=== PATIENT | male | born 1955 | race Caucasian/White ===

== ENCOUNTER 2018-09-13 07:40 | Outpatient (CLI) | payer BC ==
--- NOTE | 2018-09-13 09:53 | CT ---
CT PULMONARY ANGIO CHEST WITH 3D RENDERING: HISTORY: Shortness of breath, chest pain, elevated D-Dimer. FINDINGS: There is a 2.8 x 4 x 3.5 cm diameter circumscribed lower attenuation mass in the left paravertebral r egion posterior to the aorta which appears to be pleural-based. Attenuation coefficients are higher than expected for typical fluid. There are some erosive changes of the adjacent ribs indicating some mass effect. This mass does not extend into the adjacent foramen. The visualized pulmonary arterie s demonstrate no evidence for intraluminal thrombus. Mild linear parenchymal changes in the lung bas es, evidence for chronic change or subsegmental atelectasis. Multiple low-attenuation circumscribed foci within the visualized kidney, evidence for cysts which have increased in number and size from pr ior CT 01/04/2014. Fatty changes in the liver. No pleural effusion or pericardial effusion. Minima l coronary artery calcification involving the LAD. IMPRESSION: 1. Circumscribed mass in the medial posterior left chest in a paravertebral location posterior to th e aorta with some mass effect on the adjacent ribs, not extending into the foramen. Followup PET sca n is recommended for further assessment in this regard. 2. No convincing CT evidence for acute pulmonary embolism. 3. Bilateral renal cysts, more in number and size than on prior study. 4. Fatty changes in the liver. 5. Mild linear parenchymal changes in the lung bases, nonspecific. CODE T POS: OFF
== END 2018-09-13 07:41 | disposition home or self-care (01) ==
LOC: CT 07:40
PROVIDERS: ATTEND Family Medicine
DX: R07.9 Chest pain, unspecified (principal); R22.2 Localized swelling, mass and lump, trunk; K76.0 Fatty (change of) liver, not elsewhere classified; N28.1 Cyst of kidney, acquired
CPT/HCPCS: 71275

== ENCOUNTER 2018-09-29 07:42 | Outpatient (CLI) | payer BC ==
--- NOTE | 2018-09-29 09:45 | PET ---
PET CT: HISTORY: A 62-year-old male with chest mass seen on CT pulmonary angiogram of 09/13/2018. TECHNIQUE: PET scanning with CT attenuation correction was performed from the base of the brain through the prox imal thighs following the intravenous administration of 12 mCi of [id number] in the right hand. COMPARISON: None. CORRELATION: CT pulmonary angiogram dated 09/13/2018. FINDINGS: There is hypermetabolic activity in the left paraspinal mass in the posteromedial chest with an SUV o f 3.1. No aidan hypermetabolism is seen involving the cervical, mediastinal, hilar, axillary, abdominal, or pelvic lymph nodes. No hypermetabolic pulmonary nodules, liver, adrenal, or skeletal lesions are see n. There is physiologic activity in the GI/ tracts and visualized portions of the brain. The CT scan used for attenuation correction demonstrates no evidence of pleural effusions or ascites. IMPRESSION: Left paraspinal mass is hypermetabolic. The possibility of malignancy/metastatic disease should be c onsidered. MRI of the thoracic spine with and without IV contrast is recommended to evaluate for a n eurogenic tumor. POS: AARON
== END 2018-09-29 07:43 | disposition home or self-care (01) ==
LOC: PET 07:42
PROVIDERS: ATTEND Family Medicine
DX: R22.2 Localized swelling, mass and lump, trunk (principal)
CPT/HCPCS: 78815; A9552

== ENCOUNTER 2018-10-12 13:10 | Outpatient (CLI) | payer BC ==
--- NOTE | 2018-10-12 15:17 | ULT ---
US Renal Bilateral STANDARD: 10/12/2018 12:00 AM CLINICAL HISTORY: Renal cysts. STUDY: Renal ultrasound COMPARISON: None. FINDINGS: Right kidney: Echogenicity: Normal. Masses/cysts: 2 cysts measuring up to 4.1 cm in size. Hydronephrosis: None. Calcifications: None. Length: 15.2 cm Left kidney: Echogenicity: Normal. Masses/cysts: 2 cysts measuring up to 1.6 cm in size. Hydronephrosis: None. Calcifications: None. Length: 14.2 cm Limited visualization of the urinary bladder is unremarkable. IMPRESSION: Bilateral renal cysts
--- NOTE | 2018-10-12 15:38 | MRI ---
MRI THORACIC SPINE WITH AND WITHOUT CONTRAST: 10/12/18 HISTORY: 63-year-old male with left paravertebral mass found on CT pulmonary angiogram, which is mildly FDG av id (SUV 3.1) on PET scan. COMPARISON: No prior MRIs of T-spine. FINDINGS: Abutting the posterior surface of the descending thoracic aorta and between the proximal aspects of t he left fourth and fifth ribs, there is a well circumscribed, approximately 3 x 3.5 x 4 cm mass which is T1 moderately hypointense, has mixed hyperintense and intermediate T2 signal, and has heterogeneo us moderate enhancement. Its medial edge is lateral to the left T5-6 neural foramen. There is no tumo r component within the left neural foramen or spinal canal. There is no intramedullary signal abnorma lity and no abnormal intramedullary enhancement of the spinal cord. There are moderate degenerative d isc changes at T10-11, T11-12. There is minimal chronic anterior wedging of T11, associated with mild focal kyphosis there. Bridging osteophytes protrude into the prevertebral space at T11-12 and T12-L1 . The bone marrow signal is normal at all visualized levels. Vertebral body heights are maintained. N o high grade central spinal canal stenosis or high grade neural foraminal stenosis at any level. IMPRESSION: 1. Enhancing tumor mass at left paravertebral, retroaortic location, centered at T5-6, with no c onnection to the neural foramen or spinal canal. This is consistent with neoplasm. This could be a ne urogenic tumor, including parasympathetic ganglion tumors and sympathetic chain tumors, and periphera l nerve sheath tumor. Metastasis is less likely because no other tumor was found on the PET scan. 2. 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 3. The rest of the thoracic spine is relatively normal. POS: CET
== END 2018-10-12 13:11 | disposition home or self-care (01) ==
LOC: BICMRI 13:10
PROVIDERS: ATTEND Family Medicine
DX: R22.2 Localized swelling, mass and lump, trunk (principal); N28.1 Cyst of kidney, acquired; M51.34 Other intervertebral disc degeneration, thoracic region
CPT/HCPCS: 72157; 76770

== ENCOUNTER 2018-10-31 08:34 | Day surgery (SDC) | payer BC ==
[2018-10-30 16:00] VITALS: BMI 37.5
[2018-10-31 09:05] LABS: INR-International Normal Ratio 1.1; Prothrombin Time 13.7 SEC (12.0-14.7)
[2018-10-31 09:06] LABS: PTT 35.7 SEC (22.9-36.1)
[2018-10-31] MEDS ORDERED: Sodium Bicarbonate 2.5 MEQ/5 ML VIAL ONE (10:17)
[2018-10-31] MEDS ORDERED: Fentanyl 100 MCG/2 ML VIAL ONE (10:17)
[2018-10-31] MEDS ORDERED: Midazolam HCl 2 mg/2 ml Vial ONE (10:18)
--- NOTE | 2018-10-31 13:16 | CT ---
EXAM: CT guided percutaneous biopsy of a left paraspinous mass PROVIDED CLINICAL HISTORY: Patient with prior imaging studies demonstrating a left paraspinal mass at the T5-6 level. Biopsy was requested. COMPARISON: CTA chest on 09/13/2018 and MRI thoracic spine on 10/12/2018 TECHNIQUE: The procedure including the risks and complications were explained to the patient, and informed conse nt was obtained. The patient was placed on the CT scan table in the prone position. Limited noncontrasted CT scan was obtained through the level of the paraspinal mass. An area was marked, and then the area was meticulously prepped and draped in usual sterile fashion. The skin and subcutaneous tissues were infiltrated with buffered 1% lidocaine for local anesthesia. A small skin incision was made. A 17-gauge guide needle was advanced followed by axial noncontrasted CT images. This was repeated until the needle was placed just within the posterior peripheral aspect of the left paraspinal mass. A total of two 18-gauge core needle biopsy specimens were obtained utilizing coaxial technique. Pathologist was available for evaluation of the specimens. The needle was removed, and hemostasis was achieved with direct pressure. Axial noncontrasted imaging performed postbiopsy demonstrates no adjacent hematoma or fluid. The patient tolerated the procedure well and without immediate complication. The patient was monitored in radiology nurses hold [facility] area without further complication, the patient was discharged in stable condition. IMPRESSION: 1. Left paraspinal mass at the T5-6 level. 2. Technically successful CT-guided percutaneous biopsy of the left paraspinal mass. Final pathology report is pending.
== END 2018-10-31 13:00 | disposition home or self-care (01) ==
LOC: RAD 08:34
PROVIDERS: ATTEND Physician Assistant Surgical
PROC: 0JB60ZX Excision of Chest Subcutaneous Tissue and Fascia, Open Approach, Diagnostic (ICD-10-PCS; principal; 2018-10-31)
DX: D36.10 Benign neoplasm of peripheral nerves and autonomic nervous system, unspecified (principal); I10 Essential (primary) hypertension; E11.9 Type 2 diabetes mellitus without complications; E78.5 Hyperlipidemia, unspecified; G47.33 Obstructive sleep apnea (adult) (pediatric); Z88.1 Allergy status to other antibiotic agents; Z88.5 Allergy status to narcotic agent; Z91.013 Allergy to seafood; Z91.041 Radiographic dye allergy status
CPT/HCPCS: 36415; 71250; 72131; 77002; 85610; 85730; 88307; 88333; 88341; 88342; J2250; J3010

== ENCOUNTER 2018-11-13 05:57 | Inpatient (IN) | payer BC ==
[2018-11-10 17:33] VITALS: BMI 37.5
[2018-11-10 17:45] LABS: #Basophils 0.1 thou/uL (0.0-0.2); #Eosinphils 0.2 thou/uL (0.0-0.7); #Lymphocytes 2.8 thou/uL (1.20-3.40); #Monocytes 0.6 thou/uL (0.11-0.59); #Neutrophils 4.5 thou/uL (1.40-6.50); %Basophils 0.8 % (0.0-1.0); %Eosinophils 2.9 % (0.0-10.0); %Lymphocytes 34.1 % (21.0-51.0); %Monocytes 7.3 % (0.0-10.0); %Neutrophils 54.9 % (42.0-75.0); Hemoglobin 13.3 g/dL (14.0-18.0); Mean Corpuscular HGB CONC 35.8 g/dL (32.0-36.0); Mean Corpuscular Hemoglobin 31.2 pg (27.0-31.0); Mean Corpuscular Volume 87.2 fL (78.0-98.0); Platelet Count 230 thou/uL (130-400); RBC Distribution Width 13.2 % (11.5-14.5); Red Blood Cell (RBC) Count 4.25 mill/uL (4.70-6.10); White Blood Cell (WBC) Count 8.2 thou/uL (4.8-10.8)
[2018-11-10 18:17] LABS: Anion Gap 16 mmol/L (10-20); BUN (Urea Nitrogen) 18 mg/dL (8.4-25.7); Calc. Creatinine Clearance 0 mL/min (70-130); Calcium 9.5 mg/dL (7.8-10.44); Carbon Dioxide 21 mmol/L (23-31); Chloride 100 mmol/L (98-107); Estimated GFR-MDRD Greater than 90; Glucose 187 mg/dL (80-115); Sodium 133 mmol/L (136-145)
[2018-11-13] MEDS ORDERED: Bupivacaine HCl 0.5%/Epinephrine 1:200,000/PF 30 ml Vial ONE (06:35)
[2018-11-13] MEDS ORDERED: Midazolam HCl 2 mg/2 ml Vial ONE ×2 (06:58→07:35)
[2018-11-13] MEDS ORDERED: Fentanyl 100 MCG/2 ML VIAL ONE ×3 (06:59→15:48)
[2018-11-13] MEDS ORDERED: Lidocaine 1.5% w/Epi 1:200K 30 ML VIAL (Epid Use) ONE (07:22)
[2018-11-13] MEDS ORDERED: Lidocaine 1% PF 5 ML VIAL ONE (07:22)
[2018-11-13] MEDS ORDERED: Acetaminophen 500 MG TAB PO PRN (07:33)
[2018-11-13] MEDS ORDERED: Fentanyl 250 MCG/5 ML VIAL ONE (07:35)
[2018-11-13] MEDS ORDERED: diphenhydrAMINE 50 MG/ML VIAL IM PRN (07:45)
[2018-11-13] MEDS ORDERED: Bupivacaine 0.25% 10 ML VIAL EPIDURAL PRN (07:45)
[2018-11-13] MEDS ORDERED: diphenhydrAMINE 25 MG CAP PO PRN (07:45)
[2018-11-13] MEDS ORDERED: traMADol HCl 50 MG TAB PO PRN ×2 (07:45→09:43)
[2018-11-13] MEDS ORDERED: Ondansetron PF 4 MG/2 ML Vial IVP PRN ×2 (07:45→09:43)
[2018-11-13] MEDS ORDERED: Promethazine HCl 25 MG/ML VIAL IM PRN ×2 (07:45→09:43)
[2018-11-13] MEDS ORDERED: Hydrocerin (Eucerin) Cream 120 gm Jar TOP PRN (07:45)
[2018-11-13] MEDS ORDERED: Promethazine HCl 25 MG SUPP PR PRN (07:45)
[2018-11-13] MEDS ORDERED: diphenhydrAMINE 50 MG/ML VIAL IVP PRN (07:45)
[2018-11-13] MEDS ORDERED: Fentanyl 5 mcg/Bup 0.075% Cadd 100 ML EPIDURAL SCH (07:45)
[2018-11-13] MEDS ORDERED: Naloxone HCl 0.4 mg/ml Vial IV PRN (07:45)
[2018-11-13] MEDS ORDERED: Naloxone HCl 0.4 mg/ml Vial IVP PRN (07:45)
[2018-11-13] MEDS ORDERED: Zolpidem Tartrate 5 MG TAB PO PRN (07:45)
[2018-11-13] MEDS ORDERED: Bupivacaine/Epinephrine 0.25% 30 ML VIAL ONE (08:49)
[2018-11-13] MEDS ORDERED: Insulin Regular 300 UNITS/3 ML VIAL SC PRN (09:43)
[2018-11-13] MEDS ORDERED: HYDROcodone/Acetaminophen 5/325 mg Tablet PO PRN ×2 (09:43)
--- NOTE | 2018-11-13 10:56 | RAD ---
RADIOGRAPH CHEST 1 VIEW: Date: 11/13/18 Time: 0937 hours HISTORY: 63-year-old male status post thoracotomy. COMPARISON: 09/04/18. FINDINGS: New finding of two left-sided chest tubes, one at left base, and the other with tip near apex. No pne umothorax visualized. Lungs are hypoinflated now. Mild, small patchy densities left mid-lower lung zo ne and right base, new since the prior study. These are nonspecific, but could represent atelectasis. No cardiomegaly or pulmonary edema. Faint patchy ill-defined infiltrate-like density over right mid lung zone. IMPRESSION: 1. Two left-sided chest tubes. 2. No pneumothorax identified. 3. Nonspecific small pulmonary densities bilaterally. JN [] POS: CET
--- NOTE | 2018-11-13 12:18 | OP ---
DATE OF PROCEDURE: 11/13/2018 PREOPERATIVE DIAGNOSIS: Left chest wall schwannoma. POSTOPERATIVE DIAGNOSIS: Left chest wall schwannoma. PROCEDURE PERFORMED: Left thoracotomy for resection of schwannoma. ANESTHESIA: General endotracheal-Dr. Michaela Torres. ESTIMATED BLOOD LOSS: Less than 100. DRAINS: A 24-Anguillan Jonah drains x2. DESCRIPTION OF PROCEDURE: After consent was obtained, the patient was brought to the operating room, placed in supine position on the operating table. Appropriate central line and monitors were placed and general endotracheal anesthesia was induced. The patient was placed in the right lateral decubitus position. Joints were appropriately padded and SCDs were used. Left chest was prepped and draped in usual sterile fashion. A posterolateral thoracotomy incision was made. Dissection down through the latissimus was done with electrocautery. The patient had a thick chest wall including musculature. Serratus was fair. Fifth interspace was entered. The lung was deflated. Mass was easily visualized. The pleura was incised over the mass, and finger dissection used to carefully dissect the mass free from the chest wall. Feeding vessels were clipped, and the mass was then sharply removed. Hemostasis was ensured in the bed. Two 24-Anguillan Jonah drains were placed. The lung was re-expanded under direct vision and filled the chest cavity nicely. Ribs reapproximated with #1 Vicryl. Wounds were irrigated and closed in multiple layers, and Dermabond applied to skin. The patient was awakened, extubated, transferred to the recovery room in stable condition. Job ID: [id number]
[2018-11-13] MEDS ORDERED: Rocuronium Bromide 10 MG/ML (10ML VIAL) ONE (14:12)
[2018-11-13] MEDS ORDERED: Ondansetron PF 4 MG/2 ML Vial ONE (14:12)
[2018-11-13] MEDS ORDERED: PROPOFOL 200 MG/20 ML VIAL ONE (14:12)
[2018-11-13] MEDS ORDERED: Dexamethasone 20 MG/5 ML VIAL ONE (14:12)
[2018-11-13] MEDS ORDERED: Ketorolac Tromethamine 30 MG/ML VIAL ONE (14:12)
[2018-11-13] MEDS ORDERED: Glycopyrrolate 0.2 MG/ML 5 ML SYRINGE ONE (14:12)
[2018-11-13] MEDS ORDERED: Promethazine HCl 25 MG/ML VIAL IM/IV PRN (15:56)
[2018-11-13] MEDS ORDERED: Ondansetron HCl/PF 4 MG/2 ML Vial IVP PRN (15:56)
[2018-11-13] MEDS ORDERED: Non-Formulary Medication 1 EACH PO PRN (15:56)
[2018-11-13] MEDS: metFORMIN 500 MG TAB PO SCH (16:23)
[2018-11-13] MEDS: Sodium Chloride 0.9% 1,000 ML IV SCH ×2 (16:30→20:39)
[2018-11-13] MEDS: CEFAZOLIN 2 GM in Premix Bag 1 BAG IVPB SCH ×2 (16:31→21:52)
[2018-11-13] MEDS: Ketorolac Tromethamine 30 MG/ML VIAL IVP SCH ×3 (16:31→23:47)
[2018-11-13] MEDS: Rosuvastatin 20 MG TAB PO SCH (20:48)
[2018-11-13] MEDS: glipiZIDE 10 MG TAB PO SCH (20:48)
[2018-11-13] MEDS: fentaNYL Citrate/PF 500 MCG, Bupivacaine 10 ML in Sodium Chloride 0.9% 80 ML EPIDURAL SCH (21:41)
[2018-11-13] MEDS: traMADol HCl 50 MG TAB PO PRN (22:13)
[2018-11-14] MEDS: traMADol HCl 50 MG TAB PO PRN ×2 (03:26→09:28)
[2018-11-14 04:21] LABS: #Lymphocytes 1.2 thou/uL (1.20-3.40); #Monocytes 1.1 thou/uL (0.11-0.59); %Basophils 0.3 % (0.0-1.0); %Eosinophils 0.3 % (0.0-10.0); %Lymphocytes 10.8 % (21.0-51.0); %Monocytes 9.5 % (0.0-10.0); %Neutrophils 79.2 % (42.0-75.0); Hemoglobin 12.8 g/dL (14.0-18.0); Mean Corpuscular HGB CONC 35.4 g/dL (32.0-36.0); Mean Corpuscular Hemoglobin 31.4 pg (27.0-31.0); Mean Corpuscular Volume 88.6 fL (78.0-98.0); Platelet Count 253 thou/uL (130-400); RBC Distribution Width 13.2 % (11.5-14.5); Red Blood Cell (RBC) Count 4.07 mill/uL (4.70-6.10); White Blood Cell (WBC) Count 11.4 thou/uL (4.8-10.8)
[2018-11-14 04:45] LABS: Anion Gap 12 mmol/L (10-20); BUN (Urea Nitrogen) 20 mg/dL (8.4-25.7); Calc. Creatinine Clearance 176 mL/min (70-130); Calcium 8.7 mg/dL (7.8-10.44); Carbon Dioxide 25 mmol/L (23-31); Chloride 100 mmol/L (98-107); Estimated GFR-MDRD Greater than 90; Glucose 158 mg/dL (80-115); Sodium 133 mmol/L (136-145)
[2018-11-14] MEDS: Sodium Chloride 0.9% 1,000 ML IV SCH ×2 (05:01→16:22)
[2018-11-14] MEDS: CEFAZOLIN 2 GM in Premix Bag 1 BAG IVPB SCH (05:09)
[2018-11-14] MEDS: Ketorolac Tromethamine 30 MG/ML VIAL IVP SCH ×3 (05:09→17:31)
--- NOTE | 2018-11-14 07:44 | RAD ---
Exam: Chest one view: HISTORY: Status post thoracotomy COMPARISON: 11/13/2018 FINDINGS: Left chest tube is in place. Minimal supraclavicular subcutaneous emphysema. Possible tiny apical pne umothorax. Poor inspiratory effort with mostly linear horizontal parenchymal changes bilaterally evidence for subsegmental atelectasis. Stable appearance from prior study. IMPRESSION: Stable appearance of the chest.
[2018-11-14] MEDS ORDERED: METHYLPHENIDATE HCL PO SCH (09:00)
[2018-11-14] MEDS ORDERED: Non-Formulary Item 1 EACH (Empagliflozin [Jardiance] 1 TAB) PO SCH (09:00)
[2018-11-14] MEDS ORDERED: Fenofibrate Nanocrystallized 145 MG TAB PO SCH (09:00)
[2018-11-14] MEDS: metFORMIN 500 MG TAB PO SCH ×2 (09:28→17:32)
[2018-11-14] MEDS: Cholestyramine/Aspartame 4 gm Packet PO SCH (09:29)
[2018-11-14] MEDS: Lisinopril 20 MG TAB PO SCH (09:29)
[2018-11-14] MEDS: Tamsulosin HCl 0.4 MG CAP PO SCH (09:29)
[2018-11-14] MEDS: glipiZIDE 10 MG TAB PO SCH ×2 (09:29→21:07)
[2018-11-14] MEDS: fentaNYL Citrate/PF 500 MCG, Bupivacaine 10 ML in Sodium Chloride 0.9% 80 ML EPIDURAL SCH ×2 (10:52→21:19)
[2018-11-14] MEDS: TURMERIC MC SCH (12:56)
[2018-11-14] MEDS ORDERED: Furosemide 40 MG/4 ML VIAL SLOW IVP SCH (13:45)
--- NOTE | 2018-11-14 14:20 | RAD ---
PORTABLE CHEST 1 VIEW: Date: 11/14/18 Time: 1250 hours HISTORY: Shortness of breath, status post thoracotomy. FINDINGS/IMPRESSION: No significant interval change is seen since the earlier exam at 0501 hours from same date. POS: OFF
[2018-11-14] MEDS: Fenofibrate Nanocrystallized 145 MG TAB PO SCH (21:07)
[2018-11-14] MEDS: Rosuvastatin 20 MG TAB PO SCH (21:07)
[2018-11-15] MEDS: Sodium Chloride 0.9% 1,000 ML IV SCH (05:55)
[2018-11-15] MEDS: Ketorolac Tromethamine 30 MG/ML VIAL IVP SCH ×2 (05:57)
[2018-11-15] MEDS: fentaNYL Citrate/PF 500 MCG, Bupivacaine 10 ML in Sodium Chloride 0.9% 80 ML EPIDURAL SCH (06:44)
[2018-11-15] MEDS: metFORMIN 500 MG TAB PO SCH ×2 (08:34→16:04)
[2018-11-15] MEDS: Cholestyramine/Aspartame 4 gm Packet PO SCH (08:34)
[2018-11-15] MEDS: glipiZIDE 10 MG TAB PO SCH ×2 (08:34→21:25)
[2018-11-15] MEDS: Tamsulosin HCl 0.4 MG CAP PO SCH (08:35)
[2018-11-15] MEDS: Lisinopril 20 MG TAB PO SCH (08:35)
[2018-11-15] MEDS: TURMERIC MC SCH (10:16)
[2018-11-15] MEDS ORDERED: Insulin Regular 300 UNITS/3 ML VIAL ONE (17:15)
[2018-11-15] MEDS: Rosuvastatin 20 MG TAB PO SCH (21:25)
[2018-11-15] MEDS: Fenofibrate Nanocrystallized 145 MG TAB PO SCH (21:26)
[2018-11-16] MEDS: glipiZIDE 10 MG TAB PO SCH (10:28)
[2018-11-16] MEDS: Tamsulosin HCl 0.4 MG CAP PO SCH (10:28)
[2018-11-16] MEDS: Cholestyramine/Aspartame 4 gm Packet PO SCH (10:28)
[2018-11-16] MEDS: Lisinopril 20 MG TAB PO SCH (10:28)
[2018-11-16] MEDS: metFORMIN 500 MG TAB PO SCH (10:28)
[2018-11-16 10:29] VITALS: BP 99/70
[2018-11-16 12:32] VITALS: TEMP 98.1
--- NOTE | 2018-11-17 00:12 | DIS ---
DATE OF ADMISSION: 11/13/2018 DATE OF DISCHARGE: 11/16/2018 DIAGNOSIS: Left chest schwannoma. PROCEDURE PERFORMED: Left thoracotomy with resection of schwannoma. DESCRIPTION OF HOSPITAL STAY: Mr. Brooke was electively admitted for resection of a schwannoma. He has done well postoperatively, being discharged to home in good condition. He will follow up with me in 2 weeks. DISCHARGE MEDICATIONS: Unchanged from his pre-hospital medications with the exception of addition of [place] for pain. Job ID: [id number]
== END 2018-11-16 17:22 | disposition home or self-care (01) | DRG 497 ==
LOC: SURG A 05:57 → IMCU/EMU 15:58
PROVIDERS: ADMIT Thoracic Surgery (Cardiothoracic Vascular Surgery); ATTEND Thoracic Surgery (Cardiothoracic Vascular Surgery)
PROC: 0WB80ZZ Excision of Chest Wall, Open Approach (ICD-10-PCS; principal; 2018-11-13)
DX: D36.14 Benign neoplasm of peripheral nerves and autonomic nervous system of thorax (principal); Z01.818 Encounter for other preprocedural examination
CPT/HCPCS: 36415; 36416; 71045; 80048; 85025; 86850; 86900; 86901; 88307; 93005; 93010; 94640; J0131; J0670; J0690; J1100; J1642; J1815; J1885; J1940; J2001; J2250; J2405; J2704; J3010; J3490; J7620

== ENCOUNTER 2018-12-04 14:08 | Outpatient (CLI) | payer BC ==
--- NOTE | 2018-12-04 14:27 | RAD ---
XR Chest Pa Lat @ [facility] HISTORY: Dyspnea COMPARISON: 11/14/2018 FINDINGS: The heart size is normal. The aorta is tortuous. A small left pleural effusion is present. Left-sided chest tube has been removed in the interim. There is a fracture of the left fifth rib. No pneumothoraces are seen. The right lung is clear. There are degenerative changes in the spine.
== END 2018-12-04 14:09 | disposition home or self-care (01) ==
LOC: RAD 14:08
PROVIDERS: ATTEND Thoracic Surgery (Cardiothoracic Vascular Surgery)
DX: D36.10 Benign neoplasm of peripheral nerves and autonomic nervous system, unspecified (principal)
CPT/HCPCS: 71046

== ENCOUNTER 2020-08-15 19:00 | Outpatient (CLI) | payer BC | END 2020-08-15 19:01 | disposition home or self-care (01) | LOC: SLEEPLAB 19:00 | PROVIDERS: ATTEND Family Medicine | DX: G47.33 Obstructive sleep apnea (adult) (pediatric) (principal); R53.83 Other fatigue; K21.9 Gastro-esophageal reflux disease without esophagitis; I10 Essential (primary) hypertension; R06.83 Snoring; G47.10 Hypersomnia, unspecified; G47.00 Insomnia, unspecified; E66.9 Obesity, unspecified; Z68.36 Body mass index [BMI] 36.0-36.9, adult | CPT/HCPCS: 95810 ==

== ENCOUNTER 2020-09-30 07:32 | Outpatient (CLI) | payer BC ==
[2020-09-30] MEDS ORDERED: Iopamidol-370 76% 500 ML 1 ML ONE (09:02)
== END 2020-09-30 07:33 | disposition home or self-care (01) ==
LOC: BICCT 07:32
PROVIDERS: ATTEND Family Medicine
DX: J98.59 Other diseases of mediastinum, not elsewhere classified (principal)
CPT/HCPCS: 71260; Q9967

== ENCOUNTER 2021-01-24 13:07 | Inpatient (IN) | payer BC, OTHER ==
[2021-01-24] MEDS ORDERED: Morphine 4 MG/ML VIAL ONE (15:04)
[2021-01-24 15:25] LABS: #Eosinphils 0.1 thou/uL (0.0-0.7); #Monocytes 0.4 thou/uL (0.11-0.59); #Neutrophils 3.6 thou/uL (1.40-6.50); %Basophils 0.8 % (0.0-1.0); %Eosinophils 2.4 % (0.0-10.0); %Lymphocytes 31.9 % (21.0-51.0); Mean Corpuscular HGB CONC 34.3 g/dL (32.0-36.0); Mean Corpuscular Hemoglobin 29.9 pg (27.0-31.0); Mean Corpuscular Volume 87.2 fL (78.0-98.0); Mean Platelet Volume 7.4 fL (7.4-10.4); Platelet Count 221 thou/uL (130-400); RBC Distribution Width 13.4 % (11.5-14.5); Red Blood Cell (RBC) Count 4.69 mill/uL (4.70-6.10); White Blood Cell (WBC) Count 6.2 thou/uL (4.8-10.8)
[2021-01-24] MEDS ORDERED: Communication Order-Pharmacy FS SCH (15:45)
[2021-01-24] MEDS ORDERED: Acetaminophen 325 MG TAB PO PRN (15:45)
[2021-01-24] MEDS ORDERED: Ondansetron PF 4 MG/2 ML Vial IVP PRN (15:45)
[2021-01-24 15:47] LABS: ALT (SGPT) 36 U/L (8-55); AST (SGOT) 29 U/L (5-34); Albumin 4.3 g/dL (3.4-4.8); Alkaline Phosphatase 51 U/L (40-110); Anion Gap 13 mmol/L (10-20); BUN (Urea Nitrogen) 15 mg/dL (8.4-25.7); Bilirubin, Total 0.4 mg/dL (0.2-1.2); Calc. Creatinine Clearance 0 mL/min (70-130); Carbon Dioxide 24 mmol/L (23-31); Chloride 103 mmol/L (98-107); Globulin 3.4 g/dL (2.4-3.5); Glucose 133 mg/dL (80-115); Potassium 4.2 mmol/L (3.5-5.1); Protein, Total 7.7 g/dL (5.8-8.1); Sodium 136 mmol/L (136-145)
[2021-01-24 17:55] VITALS: BMI 36.5
[2021-01-24] MEDS: Acetaminophen 500 MG TAB PO SCH ×3 (19:03→23:48)
[2021-01-24] MEDS: metFORMIN 500 MG TAB PO SCH ×2 (19:03→19:14)
[2021-01-24 19:21] LABS: SARS-CoV-2 NAA Rapid Test Not Detected (NotDetected)
[2021-01-24] MEDS: Ascorbic Acid 500 mg Chewable Tablet PO SCH (20:00)
[2021-01-24] MEDS: Rosuvastatin 20 MG TAB PO SCH (20:00)
[2021-01-24] MEDS: traMADol HCl 50 MG TAB PO PRN (20:01)
[2021-01-24] MEDS: Cyclobenzaprine 10 MG TAB PO PRN (20:01)
[2021-01-24] MEDS: Gabapentin 300 MG CAP PO SCH (20:01)
[2021-01-24] MEDS: Fentanyl 100 MCG/2 ML VIAL SLOW IVP PRN ×2 (20:23→22:47)
[2021-01-24] MEDS ORDERED: Sodium Chloride 0.9% 1,000 ML IV SCH (23:45)
[2021-01-25 06:02] LABS: #Eosinphils 0.2 thou/uL (0.0-0.7); #Lymphocytes 2.8 thou/uL (1.20-3.40); #Monocytes 0.5 thou/uL (0.11-0.59); #Neutrophils 2.6 thou/uL (1.40-6.50); %Basophils 0.8 % (0.0-1.0); %Eosinophils 3.7 % (0.0-10.0); %Lymphocytes 45.3 % (21.0-51.0); %Neutrophils 42.2 % (42.0-75.0); Hemoglobin 13.4 g/dL (14.0-18.0); Mean Corpuscular HGB CONC 35.1 g/dL (32.0-36.0); Mean Corpuscular Hemoglobin 30.3 pg (27.0-31.0); Mean Corpuscular Volume 86.3 fL (78.0-98.0); Mean Platelet Volume 7.2 fL (7.4-10.4); Platelet Count 230 thou/uL (130-400); RBC Distribution Width 13.3 % (11.5-14.5); Red Blood Cell (RBC) Count 4.41 mill/uL (4.70-6.10); White Blood Cell (WBC) Count 6.2 thou/uL (4.8-10.8)
[2021-01-25] MEDS: Acetaminophen 500 MG TAB PO SCH ×6 (06:05→23:00)
[2021-01-25] MEDS ORDERED: CEFAZOLIN 2 GM in Premix Bag 1 BAG IVPB SCH (08:00)
[2021-01-25] MEDS ORDERED: Lisinopril 20 MG TAB PO SCH (09:00)
[2021-01-25] MEDS ORDERED: Insulin Regular 300 UNITS/3 ML VIAL SC PRN ×2 (09:05)
[2021-01-25] MEDS ORDERED: Dextrose 5% in Water 1,000 ML IV PRN (09:05)
[2021-01-25] MEDS ORDERED: Dextrose 50% Abboject 50 ML SYRINGE SLOW IVP PRN (09:05)
[2021-01-25] MEDS ORDERED: hydrALAZINE 20 MG/ML VIAL SLOW IVP PRN (09:21)
[2021-01-25] MEDS ORDERED: ceFAZolin Sodium (SDC) 2 GM/100 ML BAG ONE (11:02)
[2021-01-25] MEDS ORDERED: Fentanyl 100 MCG/2 ML VIAL ONE ×2 (11:02→11:47)
[2021-01-25] MEDS ORDERED: Lidocaine 1% (PF) 30 ML VIAL ONE (11:59)
[2021-01-25] MEDS ORDERED: Dexamethasone 20 MG/5 ML VIAL ONE (12:02)
[2021-01-25] MEDS ORDERED: Ondansetron PF 4 MG/2 ML Vial ONE (12:02)
[2021-01-25] MEDS ORDERED: PHENYLEPHRINE-NS 100 MCG/ML 10 ML SYRINGE ONE ×2 (12:02→15:07)
[2021-01-25] MEDS ORDERED: Ketorolac Tromethamine 30 MG/ML VIAL ONE (12:02)
[2021-01-25] MEDS ORDERED: PROPOFOL 200 MG/20 ML VIAL ONE (12:02)
[2021-01-25] MEDS ORDERED: Succinylcholine 200 MG/10 ml SYRINGE FS ONE (12:02)
[2021-01-25] MEDS ORDERED: HYDROmorphone 2 MG/ML VIAL ONE (13:43)
[2021-01-25] MEDS ORDERED: SUGAMMADEX SODIUM 200 MG/2 ML VIAL ONE (14:50)
[2021-01-25] MEDS ORDERED: Promethazine HCl 25 MG/ML VIAL IVPB PRN (15:10)
[2021-01-25] MEDS ORDERED: Promethazine HCl 25 MG/ML VIAL IM PRN (15:10)
[2021-01-25] MEDS ORDERED: Ondansetron HCl/PF 4 MG/2 ML Vial IVP PRN (15:10)
[2021-01-25] MEDS ORDERED: Acetaminophen 325 MG TAB PO PRN (15:18)
[2021-01-25 15:38] LABS: Hemoglobin 11.8 g/dL (14.0-18.0); Mean Corpuscular HGB CONC 33.8 g/dL (32.0-36.0); Mean Corpuscular Hemoglobin 29.8 pg (27.0-31.0); Mean Corpuscular Volume 88.4 fL (78.0-98.0); Mean Platelet Volume 7.3 fL (7.4-10.4); Platelet Count 357 thou/uL (130-400); RBC Distribution Width 13.3 % (11.5-14.5); Red Blood Cell (RBC) Count 3.95 mill/uL (4.70-6.10); White Blood Cell (WBC) Count 21.8 thou/uL (4.8-10.8)
[2021-01-25] MEDS: Ascorbic Acid 500 mg Chewable Tablet PO SCH ×2 (16:38→22:10)
[2021-01-25] MEDS: glipiZIDE 10 MG TAB PO SCH ×2 (16:38→16:47)
[2021-01-25] MEDS: metFORMIN 500 MG TAB PO SCH ×2 (16:38→16:47)
[2021-01-25] MEDS: Fenofibrate Nanocrystallized 145 MG TAB PO SCH (16:39)
[2021-01-25] MEDS: Empagliflozin 10 MG TAB PO SCH (16:39)
[2021-01-25] MEDS: Cholestyramine/Aspartame 4 gm Packet PO SCH (16:39)
[2021-01-25] MEDS: Lisinopril 20 MG TAB PO SCH (16:39)
[2021-01-25] MEDS: Gabapentin 300 MG CAP PO SCH ×3 (16:39→22:11)
[2021-01-25] MEDS: METHYLPHENIDATE HCL 36 MG PO SCH (16:39)
[2021-01-25] MEDS: traMADol HCl 50 MG TAB PO PRN (16:46)
[2021-01-25] MEDS: Tamsulosin HCl 0.4 MG CAP PO SCH (16:50)
[2021-01-25] MEDS: Rosuvastatin 20 MG TAB PO SCH (22:11)
[2021-01-25] MEDS: CEFAZOLIN 2 GM, Admixture Fee 1 EACH in Sodium Chloride 0.9% 100 ML IVPB SCH (22:12)
[2021-01-26 04:47] LABS: Hemoglobin 8.9 g/dL (14.0-18.0); Mean Corpuscular Hemoglobin 30.3 pg (27.0-31.0); Mean Corpuscular Volume 86.5 fL (78.0-98.0); Mean Platelet Volume 7.4 fL (7.4-10.4); Platelet Count 214 thou/uL (130-400); RBC Distribution Width 13.2 % (11.5-14.5); Red Blood Cell (RBC) Count 2.95 mill/uL (4.70-6.10); White Blood Cell (WBC) Count 13.6 thou/uL (4.8-10.8)
[2021-01-26] MEDS: Acetaminophen 500 MG TAB PO SCH ×5 (05:22→23:15)
[2021-01-26] MEDS: traMADol HCl 50 MG TAB PO PRN ×3 (05:26→23:13)
[2021-01-26] MEDS: CEFAZOLIN 2 GM, Admixture Fee 1 EACH in Sodium Chloride 0.9% 100 ML IVPB SCH (05:56)
[2021-01-26] MEDS: Fentanyl 100 MCG/2 ML VIAL SLOW IVP PRN (06:31)
[2021-01-26] MEDS: glipiZIDE 10 MG TAB PO SCH ×2 (08:19→17:06)
[2021-01-26] MEDS: metFORMIN 500 MG TAB PO SCH ×2 (08:19→17:06)
[2021-01-26] MEDS: Ascorbic Acid 500 mg Chewable Tablet PO SCH ×3 (08:21→20:48)
[2021-01-26] MEDS: Fenofibrate Nanocrystallized 145 MG TAB PO SCH (08:21)
[2021-01-26] MEDS: Tamsulosin HCl 0.4 MG CAP PO SCH (08:21)
[2021-01-26] MEDS: Empagliflozin 10 MG TAB PO SCH (08:21)
[2021-01-26] MEDS: Cholestyramine/Aspartame 4 gm Packet PO SCH ×2 (08:21→08:28)
[2021-01-26] MEDS: Gabapentin 300 MG CAP PO SCH ×3 (08:22→20:47)
[2021-01-26] MEDS: Lisinopril 20 MG TAB PO SCH (08:25)
[2021-01-26] MEDS: METHYLPHENIDATE HCL 36 MG PO SCH (09:36)
[2021-01-26] MEDS: Rosuvastatin 20 MG TAB PO SCH (20:48)
[2021-01-26] MEDS: Enoxaparin Sodium 40 MG/0.4 ML SYRINGE SC SCH (20:49)
[2021-01-26] MEDS: Cyclobenzaprine 10 MG TAB PO PRN (23:13)
[2021-01-27] MEDS: Acetaminophen 500 MG TAB PO SCH ×4 (05:43→23:24)
[2021-01-27] MEDS: metFORMIN 500 MG TAB PO SCH ×2 (08:31→16:57)
[2021-01-27] MEDS: glipiZIDE 10 MG TAB PO SCH ×2 (08:31→16:57)
[2021-01-27] MEDS: Empagliflozin 10 MG TAB PO SCH (08:33)
[2021-01-27] MEDS: Lisinopril 20 MG TAB PO SCH (08:33)
[2021-01-27] MEDS: Fenofibrate Nanocrystallized 145 MG TAB PO SCH (08:33)
[2021-01-27] MEDS: Gabapentin 300 MG CAP PO SCH ×3 (08:34→20:03)
[2021-01-27] MEDS: METHYLPHENIDATE HCL 36 MG PO SCH (08:34)
[2021-01-27] MEDS: Tamsulosin HCl 0.4 MG CAP PO SCH (08:34)
[2021-01-27] MEDS ORDERED: Polyethylene Glycol 3350 17 GM Packet PO PRN (09:41)
[2021-01-27] MEDS: traMADol HCl 50 MG TAB PO PRN ×2 (11:17→19:14)
[2021-01-27] MEDS: Ascorbic Acid 500 mg Chewable Tablet PO SCH (20:03)
[2021-01-27] MEDS: Rosuvastatin 20 MG TAB PO SCH (20:03)
[2021-01-27] MEDS: Senokot S 8.6-50 MG TAB PO SCH (20:03)
[2021-01-27] MEDS: Enoxaparin Sodium 40 MG/0.4 ML SYRINGE SC SCH (20:04)
[2021-01-27] MEDS: Cyclobenzaprine 10 MG TAB PO PRN (20:04)
[2021-01-28] MEDS: Acetaminophen 500 MG TAB PO SCH ×3 (05:25→17:29)
[2021-01-28] MEDS: Empagliflozin 10 MG TAB PO SCH (08:07)
[2021-01-28] MEDS: metFORMIN 500 MG TAB PO SCH ×2 (08:07→17:06)
[2021-01-28] MEDS: glipiZIDE 10 MG TAB PO SCH ×2 (08:07→17:05)
[2021-01-28] MEDS: Senokot S 8.6-50 MG TAB PO SCH ×2 (08:07→19:53)
[2021-01-28] MEDS: Lisinopril 20 MG TAB PO SCH (08:07)
[2021-01-28] MEDS: Fenofibrate Nanocrystallized 145 MG TAB PO SCH (08:07)
[2021-01-28] MEDS: Ascorbic Acid 500 mg Chewable Tablet PO SCH ×2 (08:07→19:51)
[2021-01-28] MEDS: METHYLPHENIDATE HCL 36 MG PO SCH (08:08)
[2021-01-28] MEDS: Tamsulosin HCl 0.4 MG CAP PO SCH (08:11)
[2021-01-28] MEDS: Gabapentin 300 MG CAP PO SCH ×3 (08:11→19:51)
[2021-01-28] MEDS: traMADol HCl 50 MG TAB PO PRN ×2 (12:27→22:34)
[2021-01-28] MEDS: Enoxaparin Sodium 40 MG/0.4 ML SYRINGE SC SCH (19:51)
[2021-01-28] MEDS: Rosuvastatin 20 MG TAB PO SCH (19:51)
[2021-01-28] MEDS: Polyethylene Glycol 3350 17 GM Packet PO SCH (19:53)
[2021-01-29] MEDS: Acetaminophen 500 MG TAB PO SCH ×4 (00:28→16:51)
[2021-01-29] MEDS: Cyclobenzaprine 10 MG TAB PO PRN ×2 (00:29→20:50)
[2021-01-29] MEDS: glipiZIDE 10 MG TAB PO SCH ×2 (06:03→16:51)
[2021-01-29] MEDS: Senokot S 8.6-50 MG TAB PO SCH ×2 (08:36→20:46)
[2021-01-29] MEDS: Fenofibrate Nanocrystallized 145 MG TAB PO SCH (08:37)
[2021-01-29] MEDS: Tamsulosin HCl 0.4 MG CAP PO SCH (08:37)
[2021-01-29] MEDS: metFORMIN 500 MG TAB PO SCH ×2 (08:37→16:51)
[2021-01-29] MEDS: Ascorbic Acid 500 mg Chewable Tablet PO SCH ×2 (08:38→20:46)
[2021-01-29] MEDS: Gabapentin 300 MG CAP PO SCH ×3 (08:38→20:46)
[2021-01-29] MEDS: Lisinopril 20 MG TAB PO SCH (08:38)
[2021-01-29] MEDS: Empagliflozin 10 MG TAB PO SCH (08:38)
[2021-01-29] MEDS: METHYLPHENIDATE HCL 36 MG PO SCH (08:41)
[2021-01-29] MEDS ORDERED: HYDROcodone/Acetaminophen 5/325 mg Tablet PO PRN ×2 (11:54)
[2021-01-29] MEDS: Rosuvastatin 20 MG TAB PO SCH (20:46)
[2021-01-29] MEDS: Enoxaparin Sodium 40 MG/0.4 ML SYRINGE SC SCH (20:46)
[2021-01-29] MEDS: Polyethylene Glycol 3350 17 GM Packet PO SCH (20:47)
[2021-01-29] MEDS: traMADol HCl 50 MG TAB PO PRN (20:50)
[2021-01-30] MEDS: Acetaminophen 500 MG TAB PO SCH ×3 (00:03→14:38)
[2021-01-30] MEDS: glipiZIDE 10 MG TAB PO SCH (06:16)
[2021-01-30 07:52] LABS: #Basophils 0.1 thou/uL (0.0-0.2); #Eosinphils 0.4 thou/uL (0.0-0.7); #Lymphocytes 1.9 thou/uL (1.20-3.40); #Monocytes 0.8 thou/uL (0.11-0.59); #Neutrophils 4.6 thou/uL (1.40-6.50); %Basophils 0.7 % (0.0-1.0); %Lymphocytes 24.5 % (21.0-51.0); %Monocytes 10.5 % (0.0-10.0); %Neutrophils 59.3 % (42.0-75.0); Hemoglobin 7.4 g/dL (14.0-18.0); Mean Corpuscular HGB CONC 33.6 g/dL (32.0-36.0); Mean Corpuscular Hemoglobin 29.1 pg (27.0-31.0); Mean Corpuscular Volume 86.7 fL (78.0-98.0); Platelet Count 266 thou/uL (130-400); RBC Distribution Width 14.2 % (11.5-14.5); Red Blood Cell (RBC) Count 2.54 mill/uL (4.70-6.10); White Blood Cell (WBC) Count 7.7 thou/uL (4.8-10.8)
[2021-01-30] MEDS: Senokot S 8.6-50 MG TAB PO SCH (08:40)
[2021-01-30] MEDS: Gabapentin 300 MG CAP PO SCH (08:40)
[2021-01-30] MEDS: metFORMIN 500 MG TAB PO SCH (08:40)
[2021-01-30] MEDS: Tamsulosin HCl 0.4 MG CAP PO SCH (08:41)
[2021-01-30] MEDS: Empagliflozin 10 MG TAB PO SCH (08:41)
[2021-01-30] MEDS: Ascorbic Acid 500 mg Chewable Tablet PO SCH (08:41)
[2021-01-30] MEDS: Lisinopril 20 MG TAB PO SCH (08:41)
[2021-01-30] MEDS: Fenofibrate Nanocrystallized 145 MG TAB PO SCH (08:41)
[2021-01-30] MEDS: METHYLPHENIDATE HCL 36 MG PO SCH (08:42)
[2021-01-30 14:03] VITALS: BP 160/69; TEMP 98.4
== END 2021-01-30 14:57 | disposition home or self-care (01) | DRG 481 ==
LOC: ERS 13:07 → SURG A 15:33 → OBSVTOIN 01-25 11:52
PROVIDERS: ADMIT Orthopaedic Surgery; ATTEND Orthopaedic Surgery
PROC: 0QHC36Z Insertion of Intramedullary Internal Fixation Device into Left Lower Femur, Percutaneous Approach (ICD-10-PCS; principal; 2021-01-25)
PROC: 0QP Lower Bones, Removal (ICD-10-PCS; 2021-01-25)
PROC: 0QRC07Z Replacement of Left Lower Femur with Autologous Tissue Substitute, Open Approach (ICD-10-PCS; 2021-01-25)
PROC: 0QBC0ZZ Excision of Left Lower Femur, Open Approach (ICD-10-PCS; 2021-01-25)
DX: T84.195A Other mechanical complication of internal fixation device of left femur, initial encounter (principal); S72.402K Unspecified fracture of lower end of left femur, subsequent encounter for closed fracture with nonunion; Z20.822 Contact with and (suspected) exposure to COVID-19; I10 Essential (primary) hypertension; E78.00 Pure hypercholesterolemia, unspecified; G47.33 Obstructive sleep apnea (adult) (pediatric); J44.9 Chronic obstructive pulmonary disease, unspecified; W19.XXXD Unspecified fall, subsequent encounter; E11.42 Type 2 diabetes mellitus with diabetic polyneuropathy; Z88.1 Allergy status to other antibiotic agents; Z91.013 Allergy to seafood; Z79.899 Other long term (current) drug therapy; Z79.82 Long term (current) use of aspirin; Z79.84 Long term (current) use of oral hypoglycemic drugs; Z90.49 Acquired absence of other specified parts of digestive tract; Z99.89 Dependence on other enabling machines and devices; Y83.8 Other surgical procedures as the cause of abnormal reaction of the patient, or of later complication, without mention of misadventure at the time of the procedure
CPT/HCPCS: 36415; 36416; 76000; 80053; 85025; 85027; 87070; 87205; 94760; 96365; C1713; J0690; J1100; J1170; J1650; J1815; J1885; J2001; J2270; J2405; J2704; J3010; J3490; J7050; U0002

== ENCOUNTER 2021-05-01 08:39 | Outpatient (CLI) | payer OTHER | END 2021-05-01 08:40 | disposition home or self-care (01) | LOC: CT 08:39 | PROVIDERS: ATTEND Family Medicine | DX: S72.492E Other fracture of lower end of left femur, subsequent encounter for open fracture type I or II with routine healing (principal); Z98.890 Other specified postprocedural states ==

== ENCOUNTER 2021-07-29 11:15 | Inpatient (IN) | payer OTHER, SELFPAY ==
[2021-07-28 15:50] VITALS: BMI 36.5
[2021-07-31] MEDS ORDERED: Ketamine 50 MG/ML (10ML VIAL) ONE (06:37)
[2021-07-31] MEDS ORDERED: fentaNYL Citrate/PF 100 MCG/2 ML SYRINGE ONE (06:37)
[2021-07-31] MEDS ORDERED: HYDROmorphone 2 MG/ML VIAL ONE ×2 (06:39→10:13)
[2021-07-31] MEDS ORDERED: Midazolam HCl 2 mg/2 ml Vial ONE (07:11)
[2021-07-31] MEDS ORDERED: Insulin Regular 300 UNITS/3 ML VIAL ONE (07:11)
[2021-07-31] MEDS ORDERED: ceFAZolin (BATCH) 2 GM/100 ML BAG ONE (07:22)
[2021-07-31] MEDS ORDERED: Ondansetron PF 4 MG/2 ML Vial ONE (07:42)
[2021-07-31] MEDS ORDERED: Metoclopramide HCl 10 MG/2 ML VIAL ONE (07:42)
[2021-07-31] MEDS ORDERED: Ketorolac Tromethamine 30 MG/ML VIAL ONE (07:42)
[2021-07-31] MEDS ORDERED: Lidocaine 1% PF 5 ML VIAL ONE (07:42)
[2021-07-31] MEDS ORDERED: Rocuronium Bromide 10 MG/ML (10ML VIAL) ONE (07:42)
[2021-07-31] MEDS ORDERED: Glycopyrrolate 0.2 MG/ML 5 ML SYRINGE ONE ×2 (07:42)
[2021-07-31] MEDS ORDERED: Dexamethasone 20 MG/5 ML VIAL ONE (07:42)
[2021-07-31] MEDS ORDERED: PROPOFOL 200 MG/20 ML VIAL ONE (07:42)
[2021-07-31] MEDS ORDERED: HYDROmorphone 2 MG/ML VIAL SLOW IVP PRN (09:33)
[2021-07-31] MEDS ORDERED: Promethazine HCl 25 MG/ML VIAL IM PRN (09:33)
[2021-07-31] MEDS ORDERED: Ondansetron HCl/PF 4 MG/2 ML Vial IVP PRN (09:33)
[2021-07-31] MEDS ORDERED: Meperidine HCl/PF 25 MG/ML VIAL SLOW IVP PRN (09:33)
[2021-07-31] MEDS ORDERED: Promethazine HCl 25 MG/ML VIAL IVPB PRN (09:33)
[2021-07-31] MEDS ORDERED: Ondansetron PF 4 MG/2 ML Vial SLOW IVP PRN (10:11)
[2021-07-31] MEDS ORDERED: Morphine 2 MG/ML VIAL SLOW IVP PRN (10:11)
[2021-07-31] MEDS ORDERED: Communication Order-Pharmacy FS SCH (10:15)
[2021-07-31] MEDS ORDERED: Fentanyl 250 MCG/5 ML VIAL ONE (10:24)
[2021-07-31] MEDS: HYDROcodone/Acetaminophen 5/325 mg Tablet PO PRN ×2 (13:04→21:51)
[2021-07-31] MEDS: ceFAZolin (BATCH) 2 GM in Premix Bag 1 BAG IVPB SCH (15:59)
[2021-07-31] MEDS: traMADol HCl 50 MG TAB PO PRN (17:28)
[2021-07-31] MEDS: glipiZIDE 10 MG TAB PO SCH (17:28)
[2021-07-31] MEDS: metFORMIN 500 MG TAB PO SCH (17:28)
[2021-07-31] MEDS ORDERED: Rosuvastatin 20 MG TAB PO SCH (21:00)
[2021-07-31] MEDS ORDERED: Empagliflozin 10 MG TAB PO SCH (21:00)
[2021-07-31] MEDS: Aspirin 81 mg Enteric Coated Tablet PO SCH (21:51)
[2021-08-01] MEDS: ceFAZolin (BATCH) 2 GM in Premix Bag 1 BAG IVPB SCH (00:58)
[2021-08-01] MEDS: traMADol HCl 50 MG TAB PO PRN (05:59)
[2021-08-01] MEDS: glipiZIDE 10 MG TAB PO SCH (05:59)
[2021-08-01 06:19] LABS: #Lymphocytes 1.7 thou/uL (1.20-3.40); #Monocytes 1.1 thou/uL (0.11-0.59); #Neutrophils 7.3 thou/uL (1.40-6.50); %Basophils 0.3 % (0.0-1.0); %Eosinophils 0.4 % (0.0-10.0); %Lymphocytes 16.4 % (21.0-51.0); %Monocytes 11.2 % (0.0-10.0); %Neutrophils 71.6 % (42.0-75.0); Hemoglobin 12.5 g/dL (14.0-18.0); Mean Corpuscular HGB CONC 34.5 g/dL (32.0-36.0); Mean Corpuscular Hemoglobin 30.5 pg (27.0-31.0); Mean Corpuscular Volume 88.6 fL (78.0-98.0); Mean Platelet Volume 7.2 fL (7.4-10.4); Platelet Count 241 thou/uL (130-400); RBC Distribution Width 14.4 % (11.5-14.5); Red Blood Cell (RBC) Count 4.09 mill/uL (4.70-6.10); White Blood Cell (WBC) Count 10.1 thou/uL (4.8-10.8)
[2021-08-01 07:00] LABS: ALT (SGPT) 24 U/L (8-55); AST (SGOT) 18 U/L (5-34); Albumin 3.9 g/dL (3.4-4.8); Alkaline Phosphatase 53 U/L (40-110); Anion Gap 16 mmol/L (10-20); BUN (Urea Nitrogen) 17 mg/dL (8.4-25.7); Bilirubin, Total 0.6 mg/dL (0.2-1.2); Calc. Creatinine Clearance 166 mL/min (70-130); Calcium 8.7 mg/dL (7.8-10.44); Carbon Dioxide 24 mmol/L (23-31); Chloride 98 mmol/L (98-107); Glucose 220 mg/dL (80-115); Potassium 3.7 mmol/L (3.5-5.1); Protein, Total 6.9 g/dL (5.8-8.1); Sodium 134 mmol/L (136-145)
[2021-08-01] MEDS: Aspirin 81 mg Enteric Coated Tablet PO SCH (08:56)
[2021-08-01] MEDS: metFORMIN 500 MG TAB PO SCH (08:57)
[2021-08-01] MEDS ORDERED: Lisinopril 20 MG TAB PO SCH (09:00)
[2021-08-01] MEDS ORDERED: METHYLPHENIDATE HCL 27 MG PO SCH (09:00)
[2021-08-01] MEDS ORDERED: Fenofibrate Nanocrystallized 145 MG TAB PO SCH (09:00)
[2021-08-01] MEDS: HYDROcodone/Acetaminophen 5/325 mg Tablet PO PRN (09:44)
[2021-08-01 11:33] VITALS: BP 113/70; TEMP 98
== END 2021-08-01 13:49 | disposition home or self-care (01) | DRG 482 ==
LOC: SURG A 07-31 06:10 → INTOOBSV 07-31 06:10 → OBSVTOIN 07-31 06:10 → SURG A 07-31 12:23
PROVIDERS: ADMIT Orthopaedic Surgery; ATTEND Orthopaedic Surgery
PROC: 0QSC04Z Reposition Left Lower Femur with Internal Fixation Device, Open Approach (ICD-10-PCS; principal; 2021-07-31)
PROC: 0QUC07Z Supplement Left Lower Femur with Autologous Tissue Substitute, Open Approach (ICD-10-PCS; 2021-07-31)
PROC: 0QB30ZZ Excision of Left Pelvic Bone, Open Approach (ICD-10-PCS; 2021-07-31)
PROC: 3E0V0GB Introduction of Recombinant Bone Morphogenetic Protein into Bones, Open Approach (ICD-10-PCS; 2021-07-31)
DX: S72.492 Other fracture of lower end of left femur (principal); E11.9 Type 2 diabetes mellitus without complications; I10 Essential (primary) hypertension; E78.00 Pure hypercholesterolemia, unspecified; Z79.82 Long term (current) use of aspirin; Z79.84 Long term (current) use of oral hypoglycemic drugs; Z79.899 Other long term (current) drug therapy; Z88.1 Allergy status to other antibiotic agents; Z88.5 Allergy status to narcotic agent; X58.XXXD Exposure to other specified factors, subsequent encounter; Y99.0 Civilian activity done for income or pay; F90.9 Attention-deficit hyperactivity disorder, unspecified type; Z83.3 Family history of diabetes mellitus; Z82.49 Family history of ischemic heart disease and other diseases of the circulatory system; Z82.3 Family history of stroke
CPT/HCPCS: 36415; 36416; 76000; 80053; 85025; 96374; 96375; 96376; C1713; G0378; J0690; J1100; J1170; J1815; J1885; J2250; J2270; J2405; J2704; J2765; J3010

== ENCOUNTER 2021-07-29 14:46 | Outpatient (CLI) | payer BC ==
[2021-07-29 16:12] LABS: Anion Gap 19 mmol/L (10-20); BUN (Urea Nitrogen) 18 mg/dL (8.4-25.7); Calc. Creatinine Clearance 0 mL/min (70-130); Calcium 10.5 mg/dL (7.8-10.44); Carbon Dioxide 24 mmol/L (23-31); Chloride 97 mmol/L (98-107); Glucose 329 mg/dL (80-115); Potassium 4.6 mmol/L (3.5-5.1); Sodium 135 mmol/L (136-145)
[2021-07-30 08:33] LABS: SARS-CoV-2 PCR by NAA Not Detected (NotDetected)
== END 2021-07-29 14:47 | disposition home or self-care (01) ==
LOC: LABBT 14:46
PROVIDERS: ATTEND Orthopaedic Surgery
DX: Z01.818 Encounter for other preprocedural examination (principal); S72.92XA Unspecified fracture of left femur, initial encounter for closed fracture; Z20.822 Contact with and (suspected) exposure to COVID-19
CPT/HCPCS: 80048; 93005; 93010; U0003; U0005

== ENCOUNTER 2021-09-16 13:08 | Outpatient (CLI) | payer OTHER | END 2021-09-16 13:09 | disposition home or self-care (01) | LOC: ULT 13:08 | PROVIDERS: ATTEND Orthopaedic Surgery | DX: S72.92XD Unspecified fracture of left femur, subsequent encounter for closed fracture with routine healing (principal) ==